=== PATIENT | female | born 1995 | race Caucasian/White ===

== ENCOUNTER 2017-05-26 05:00 | Emergency (ER) | payer SELFPAY ==
[~2017-05-26] VITALS: Ht 165.1 cm; Wt 74.8 kg
--- NOTE | 2017-05-26 06:17 | Emergency Room Report ---
History of Present Illness Time Seen by 0500 Presenting Problem in Triage Pt arrived:Ambulance Stretcher Presenting Problem:DENTAL PAIN AND RIGHT SIDE FACIAL SWELLING FOR 3 DAYS. Onset of symptoms date/time:05/26/1706/03/1200 or onset unknown for: Treatment Prior to Arrival: [facility] Provided by:NURSE Sepsis Risk Assessment: Temp: 99.1 B/P: 128/79 MAP: 95 Pulse: 87 Resp: 20 Recent fever? N Clinical Suspician of Infection? N Mental Status: 1 - Regular (Normal Baseline) Sepsis Risk:Low Sepsis Risk Have you (or family members/close friends) recently traveled outside the [place]? N If Yes, where/when: Have you had exposure to infectious disease within the past month? N TB? Other? Specify: Source patient, RN notes reviewed, family, old records Exam Limitations no limitations Comment swelling rt facial area over the last few days Cardiac Chest Pain Chest pain indicative of cardiac No Timing/Duration this evening Severity moderate ALLERGIES Coded Allergies: No Known Allergies (05/26/17) Home Medications Reported Medications No Known Home Medications History Medical History General CAD? No Angina: No [place]: No Hypertension? No Hyperlipidemia? No CHF? No DVT? No PE? No COPD? No Asthma? No Anemia? No GERD? No Gastric ulcers? No GI Bleed? No Hernia? No Thyroid Problems? No Hypothyroidism? No CVA? No Seizures? No Diabetes? No Renal Insuffiency? No End Stage Renal Disease? No UTI? No Stones? No BPH? No GB Disease: No Nephritic Syndrome? No Asplenia? No Hepatitis? No Sickle Cell Disease? No Arthritis? No Migraines? No Cataracts? No Glaucoma? No MRSA? No HIV? No TB? No Anxiety? No Depression? No Cancer? No Site: N More? 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 denies: ear discharge, epistaxis, throat pain. Respiratory denies cough, denies shortness of breath, denies wheezing Cardiovascular denies chest pain, denies syncope Gastrointestinal denies abdominal pain, denies nausea, denies vomiting Genitourinary denies: dysuria, frequency, hesitancy, hematuria. Musculoskeletal denies back pain, denies joint pain, denies joint swelling, denies neck pain Skin denies rash Psychiatric/Neurological denies headache, denies seizure Physical Exam Vital Signs Vital Signs Date Time Temp Pulse Resp B/P Pulse O2 O2 Flow FiO2 Ox Delivery Rate 05/26 0507 99.1 87 20 128/79 99 - WBC >12,000 or <4,000 or 10% bands? 2 or more SIRS Criteria Met? B/P:128/79 MAP:95 Creatinine >2.0? UA output<0.5ml/kg/hr for 2 hrs? Platelet count >100,000? Lactate >2.0mmol/1? INR >1.2 or PTT > than 60 sec? Evidence of Organ Dysfunction? Provider documented clinical suspician of infection? N Sepsis Criteria Count: 1 Sepsis Risk: Low Sepsis Risk General Appearance no apparent distress Eye Exam - bilateral eye PERRL, bilateral eye EOMI Ear, Nose, Throat dental caries, gingival disease Neck supple Respiratory Status No: respiratory distress. 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 No Departure Departure Time of Disposition 0625 Disposition DC Home or Self Care(routine) Clinical Impression Primary Impression: Infected dental carries Secondary Impressions: Pain, dental Condition STABLE Patient Instructions DI for Dental Pain Additional Instructions use meds and see pcp and dentist for follow up Discharge Counseling Counseled pt/family regarding diagnosis, medications/RX, follow up needs Prescriptions Current Visit Scripts CEPHALEXIN (Keflex 500MG Capsule) 500 MG PO Q8H #21 [facility] ED Critical Care Critical Care No at 0628
--- NOTE | 2017-05-26 06:17 | Emergency Room Report ---
History of Present Illness Time Seen by 0500 Presenting Problem in Triage Pt arrived:Ambulance Stretcher Presenting Problem:DENTAL PAIN AND RIGHT SIDE FACIAL SWELLING FOR 3 DAYS. Onset of symptoms date/time:05/26/1706/03/1200 or onset unknown for: Treatment Prior to Arrival: [facility] RN Provided by:NURSE Sepsis Risk Assessment: Temp: 99.1 B/P: 128/79 MAP: 95 Pulse: 87 Resp: 20 Recent fever? N Clinical Suspician of Infection? N Mental Status: 1 - Regular (Normal Baseline) Sepsis Risk:Low Sepsis Risk Have you (or family members/close friends) recently traveled outside the [place]? N If Yes, where/when: Have you had exposure to infectious disease within the past month? N TB? Other? Specify: Source patient, RN notes reviewed, family, old records Exam Limitations no limitations Comment swelling rt facial area over the last few days Cardiac Chest Pain Chest pain indicative of cardiac No Timing/Duration this evening Severity moderate ALLERGIES Coded Allergies: No Known Allergies (05/26/17) Home Medications Reported Medications No Known Home Medications History Medical History General CAD? No Angina: No [place]: No Hypertension? No Hyperlipidemia? No CHF? No DVT? No PE? No COPD? No Asthma? No Anemia? No GERD? No Gastric ulcers? No GI Bleed? No Hernia? No Thyroid Problems? No Hypothyroidism? No CVA? No Seizures? No Diabetes? No Renal Insuffiency? No End Stage Renal Disease? No UTI? No Stones? No BPH? No GB Disease: No Nephritic Syndrome? No Asplenia? No Hepatitis? No Sickle Cell Disease? No Arthritis? No Migraines? No Cataracts? No Glaucoma? No MRSA? No HIV? No TB? No Anxiety? No Depression? No Cancer? No Site: N More? 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 denies: ear discharge, epistaxis, throat pain. Respiratory denies cough, denies shortness of breath, denies wheezing Cardiovascular denies chest pain, denies syncope Gastrointestinal denies abdominal pain, denies nausea, denies vomiting Genitourinary denies: dysuria, frequency, hesitancy, hematuria. Musculoskeletal denies back pain, denies joint pain, denies joint swelling, denies neck pain Skin denies rash Psychiatric/Neurological denies headache, denies seizure Physical Exam Vital Signs Vital Signs Date Time Temp Pulse Resp B/P Pulse O2 O2 Flow FiO2 Ox Delivery Rate 05/26 0507 99.1 87 20 128/79 99 - WBC >12,000 or <4,000 or 10% bands? 2 or more SIRS Criteria Met? B/P:128/79 MAP:95 Creatinine >2.0? UA output<0.5ml/kg/hr for 2 hrs? Platelet count >100,000? Lactate >2.0mmol/1? INR >1.2 or PTT > than 60 sec? Evidence of Organ Dysfunction? Provider documented clinical suspician of infection? N Sepsis Criteria Count: 1 Sepsis Risk: Low Sepsis Risk General Appearance no apparent distress Eye Exam - bilateral eye PERRL, bilateral eye EOMI Ear, Nose, Throat dental caries, gingival disease Neck supple Respiratory Status No: respiratory distress. 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 No Departure Departure Time of Disposition 0625 Disposition DC Home or Self Care(routine) Clinical Impression Primary Impression: Infected dental carries Secondary Impressions: Pain, dental Condition STABLE Patient Instructions DI for Dental Pain Additional Instructions use meds and see pcp and dentist for follow up Discharge Counseling Counseled pt/family regarding diagnosis, medications/RX, follow up needs Prescriptions Current Visit Scripts CEPHALEXIN (Keflex 500MG Capsule) 500 MG PO Q8H #21 [facility] ED Critical Care Critical Care No at 0628
[2017-05-26] MEDS ORDERED: KEFLEX 500MG.500 MG PO (06:28)
[2017-05-26 07:03] VITALS: BP 128/79
== END 2017-05-26 07:04 | disposition home or self-care (01) ==
LOC: ER 05:00
DX: K04.7 Periapical abscess without sinus (principal); K02.9 Dental caries, unspecified; K06.9 Disorder of gingiva and edentulous alveolar ridge, unspecified; F17.210 Nicotine dependence, cigarettes, uncomplicated